=== PATIENT | male | born 1990 | race Caucasian/White ===

== ENCOUNTER 2018-07-28 19:28 | Emergency (ER) | payer SELFPAY ==
[~2018-07-28] VITALS: Ht 162.6 cm; Wt 82.0 kg
[2018-07-28 20:49] VITALS: BP 142/76
[2018-07-28] MEDS ORDERED: TETRACAINE 0.5% OPHTH DROPS 4ML OP ONE (22:30)
[2018-07-28] MEDS ORDERED: FLUORESCEIN SODIUM 1MG/STRIP OP ONE (22:30)
== END 2018-07-28 23:22 | disposition home or self-care (01) ==
LOC: EDBD 19:28 → ER 19:28
DX: T15.02XA Foreign body in cornea, left eye, initial encounter (principal); W45.8XXA Other foreign body or object entering through skin, initial encounter; Y93.89 Activity, other specified; Y92.89 Other specified places as the place of occurrence of the external cause; Y99.8 Other external cause status
CPT/HCPCS: 65220; 99284